=== PATIENT | female | born 1980 | race Two or more races ===

== ENCOUNTER 2024-06-25 19:26 | Emergency (ER) | payer MEDICAID, SELFPAY ==
[2024-06-25 19:28] VITALS: BMI 33.6
[2024-06-25 19:53] VITALS: BP 119/66; PULSE 81; RESP 18; TEMP 37.2; O2SAT 100
--- NOTE | 2024-06-25 20:01 | XR_ITS ---
Examination: Complete OB ultrasound, less than 14 weeks, transabdominal Date and time of exam: June 25, 2024 2043 hrs. Indications: Vaginal bleeding beginning one hour ago Technique: Obstetrical ultrasound images less than 14 weeks performed via transabdominal imaging Findings: Uterus 8.3 cm, intrauterine gestational sac 1.2 cm corresponds to 6 week 0 day gestational age No pole, no cardiac activity Right ovary obscured by bowel gas Left ovary 3.4 cm arterial flow Impression: Empty intrauterine gestational sac corresponding to 6 week 0 day gestational age No pole, no cardiac activity Recommend transvaginal pelvic sonography follow-up to confirm viability
--- NOTE | 2024-06-25 20:01 | EDNOTE_ITS ---
ED OB Contraction Preg RMI/HPI General Chief complaint: Vaginal Bleeding Stated complaint: VAGINAL BLEEDING, 8WKS Time Seen by Provider: 06/25/24 20:00 Arrival date/time: 06/25/24 19:26 44F at approximately 8 weeks and with no significant PMH presents to ED with 1 day of pelvic cramping and light vaginal bleeding/spotting. Limitations: no limitations Related Data Previous Rx's ?Medication ?Instructions ?Recorded amoxicillin 500 mg tablet 500 mg PO TID #21 tabs 07/31 [id number] 3.5 4 drp otic (ear) Q8H #10 mL 07/31/22 mg/mL-10,000 unit/mL-1 % ear solution ibuprofen 800 mg tablet 800 mg PO BID PRN pain #14 t abs 08/02/22 ofloxacin 0.3 % ear drops 10 drp otic (ear) BID 7 days #10 mL 08/02/22 Allergies Allergy/AdvReac Type Severity Reaction Status Date / Time No Known Allergies Allergy Verified 06/25/24 19:27 Review of Systems Review of Systems Systems Reviewed: All systems reviewed, normal except as documented Constitutional Constitutional: Reports system reviewed and no additional complaints, except as documented, Denies fever(s) and Denies headache(s) ENT Ears, Nose, Mouth, and Throat: Denies disequilibrium and Denies headache(s) Cardiovascular Cardiovascular: Reports system reviewed and no additional complaints, except as documented, Denies chest pain and Denies dyspnea Respiratory Respiratory: Reports system reviewed and no additional complaints, except as documented, Denies cough and Denies dyspnea Gastrointestinal Gastrointestinal: Reports system reviewed and no additional complaints, except as documented, Denies abdominal pain, Denies nausea and Denies vomiting Genitourinary Genitourinary: Reports as per HPI, Reports abnormal vaginal bleeding and Reports pelvic pain Neurologic Neurologic: Reports system reviewed and no additional complaints, except as documented, Denies confusion, Denies disequilibrium and Denies headache(s) Psychiatric Psychiatric: Denies confusion Past Medical History Past Medical History CARDIAC: Negative Congestive Heart Failure RESPIRATORY: Negative Chronic Obstructive Pulmonary Disease (COPD) GENITOURINARY: Negative Renal Disease ENDOCRINE: Negative Diabetes Mellitus Type 1 or Diabetes Mellitus Type 2 Social History SMOKING STATUS: Never smoker SUBSTANCE USE: does not use ED Exam General Limitations: Present no limitations General appearance: Present alert and in no apparent distress Head Head exam: Present atraumatic Eye Eye exam: Present normal appearance, PERRL and EOMI ENT ENT exam: Present normal exam, normal oropharynx and mucous membranes moist Neck Neck exam: Present normal inspection, full ROM and trachea midline Chest Chest inspection: Present normal inspection and symmetric chest wall rise Respiratory Respiratory exam: Present normal lung sounds bilaterally Cardiovascular Cardiovascular exam: Present regular rate, normal rhythm and normal heart sounds Abdominal Exam Abdominal exam: Present soft and normal bowel sounds Extremities Exam Extremities exam: Present normal inspection and full ROM Back Exam Back exam: Present normal inspection and full ROM Neurological Exam Neurological exam: Present alert, oriented X3 and CN II-XII intact Psychiatric Psychiatric exam: Present normal affect and normal mood Skin Skin exam: Present warm, dry, intact and normal color Course Quality Measures none Orders Category Date Time Status US OB <= 14 weeks fetus Stat Exams 06/25/24 20:01 Completed US OB transvaginal Stat Exams 06/25/24 21:53 Completed ABO/RH Type Stat Lab 06/25/24 20:13 Completed Beta HCG,Quantitative Stat Lab 06/25/24 20:13 Completed CBC Stat Lab 06/25/24 20:13 Completed CMP [Comprehensive Metabolic Panel] Stat Lab 06/25/24 20:13 Completed UA [Urinalysis] Stat Lab 06/25/24 20:06 Completed Urine Culture Stat Lab 06/25/24 20:06 Received Vital Signs Vital signs: Vital Signs Temperature 98.9 F 06/25/24 19:53 Pulse Rate 81 06/25/24 19:53 Respiratory Rate 18 06/25/24 19:53 Blood Pressure 119/66 06/25/24 19:53 Pulse Oximetry (%) 100 06/25/24 19:53 Oxygen Delivery Method Room Air 06/25/24 19:53 O2 at 100% on RA and WNLs Vaginal Bleeding MDM Narrative MDM Narrative: 44F at approximately 8 weeks and with no significant PMH presents to ED with 1 day of pelvic cramping and light vaginal bleeding/spotting. Physical exam reveals well-appearing female. Patient is afebrile, calm, and alert. US reveals IU gestation but no FHTs. Beta HCG around 7.5k and WNLs. No leukocytosis or anemia. UA just RBCs. CMP umremarkable. Blood type B+. Frame Stripper given. Patient data External records reviewed:: [facility] previous records Clinical information provided by:: patient Social determinants that could affect healthcare access:: none Patient has the following chronic illnesses:: none How is presenting disease/condition affected by chronic disease/condition?: no chronic disease Evaluation data The following diagnostics were reviewed and interpreted by me:: lab results and radiology exam(s) Lab and/or radiology exams considered but not ordered:: ordered Interpretation Summary: above Medications / Prescriptions Medications or Prescriptions considered but not ordered:: not ordered Medication administrations:: n/a Consultations Consultation(s) initiated? (list below): No Diagnosis Vaginal Bleeding Differential Diagnosis: missed , threatened , dysfunctional uterine bleeding, menometrorrhagia, incomplete , ectopic without intrauterine and vaginal bleeding Most likely diagnosis given after review of the tests above:: threatened miscarriage Admission Indicated Admission indicated?: not indicated Admission Request Was there a request for admission?: No Disposition Plan Disposition Plan: Discharge Discharge Attestation Discharge Attestation: The patient and all family members were given an opportunity to ask questions and understood the discharge instructions. Discharge instructions specifically effects, indications for sooner follow up or return to the emergency department, and the expected course of current diagnosis. Patient condition: Stable Discharge Plan Plan Patient Disposition: HOME (Self Care) Disposition Comment: Stable Prescriptions/Referrals Prescriptions/Med Rec: No Action [id number] 3.5-10,000-1 mg/mL-unit/mL-% solution 4 drp otic (ear) Q8H Qty: 10 0RF amoxicillin 500 mg tablet 500 mg PO TID Qty: 21 0RF ofloxacin 0.3 % drops 10 drp otic (ear) BID 7 Days Qty: 10 1RF ibuprofen 800 mg tablet 800 mg PO BID PRN (Reason: pain) Qty: 14 0RF Referrals: No Primary/Family,Physician [Primary Care Provider] - In 1 week Problem List Clinical Impression: Threatened miscarriage Patient/Caregiver Discharge Instructions Education Materials: ED Possible Miscarriage ... Additional Instructions: Please follow-up with PCP/OBGYN within 24-48 hours and return immediately if symptoms worsen. Repeat HCG +/- US in 48-72 hours. Print Language: Turkmen Stand Alone Forms: Patient Portal Info Letter PA/DESTINY Supervising Physician PA/DESTINY Supervising Physician: Dr. Marin
[2024-06-25 20:38] LABS: Basophils % (Auto) 0 % (0-2.5); Eosinophils # (Auto) 0.2 Thou/mm3 (0.0-0.5); Eosinophils % (Auto) 3 % (0-10); Hematocrit 37.1 % (36.0-46.0); Hemoglobin 12.8 g/dL (12.0-16.0); Immature Granulocytes % (Auto) 0 % (0-0); Immature Granulocytes Auto 0.02 Thou/mm3 (0.00-0.00); Lymphocytes # (Auto) 2.6 Thou/mm3 (1.0-4.8); Lymphocytes % (Auto) 30 % (10-50); Mean Corpuscular HGB Conc 34.5 g/dl (31.0-37.0); Mean Corpuscular Hemoglobin 32.5 pg (25.0-35.0); Mean Corpuscular Volume 94 fL (80-100); Monocytes # (Auto) 0.9 Thou/mm3 (0.0-0.8); Monocytes % (Auto) 10 % (0-12); Neutrophils % (Auto) 57 % (37-80); Nucleated Red Blood Cell % 0 /100 WBC (0); Platelet Count 301 Thou/mm3 (140-440); Red Blood Count 3.94 Miln/mm3 (4.00-5.20); White Blood Count 8.7 Thou/mm3 (3.6-11.0)
[2024-06-25 20:40] LABS: Collection Type, Urine Clean Catch
[2024-06-25 21:10] LABS: Bilirubin,Urine Negative (Negative); Blood,Urine 3+ (Negative); Clarity,Urine Clear (Clear/Hazy); Color,Urine Lt-Yellow (Lt Yel-Yel); Glucose, Urine Negative (Negative); Ketones,Urine Negative (Negative); Leukocyte Esterase,Urine Negative (Negative); Nitrite,Urine Negative (Negative); Protein,Urine Trace (Neg - Trace); RBC,Urine 48 /hpf (0-3); Specific Gravity,Urine 1.028 (1.001-1.035); Squamous Epithelial Cell,Urine 7 /hpf (0-5); Urobilinogen,Urine Negative mg/dL (0.0-1.0); WBC,Urine 4 /hpf (0-5)
[2024-06-25 21:10] LABS: Alanine Aminotransferase 11 U/L (10-49); Albumin, Serum 4.4 gm/dL (3.5-5.0); Albumin/Globulin Ratio 1.9 (1.2-2.2); Alkaline Phosphatase 91 U/L (46-116); Anion Gap 6 (7-16); Aspartate Amino Transferase 18 U/L (0-34); BUN/Creatinine Ratio 29 Ratio (12-20); Bilirubin,Total 0.2 mg/dL (0.3-1.2); Blood Urea Nitrogen 23 mg/dL (9-23); Calcium 8.9 mg/dL (8.3-10.6); Calcium (Corrected) 8.9 mg/dL (8.5-10.1); Carbon Dioxide 24.5 mMol/L (20.0-31.0); Chloride 104 mMol/L (98-107); Creatinine (Component) 0.8 mg/dL (0.6-1.3); Estimated Creatinine Clearance 69.9 mL/min (>60); Globulin 2.3 gm/dL (2.3-3.5); Glucose 102 mg/dL (74-106); Osmolality,Calculated 271 (275-295); Potassium 4.4 mMol/L (3.4-5.1); Sodium 134 mMol/L (136-145); Total Protein 6.7 gm/dL (5.7-8.2); eGFR > 60 See Note
[2024-06-25 21:33] LABS: Beta HCG,Quantitative 7555 mIU/mL (<5.0)
--- NOTE | 2024-06-25 21:53 | XR_ITS ---
Examination: OB Transvaginal ultrasound of the pelvis, complete Technique: Transvaginal sonographic images pelvis performed using urrutia scale imaging Exam date and time: June 25, 2024 1002 p.M. Indications: Vaginal bleeding beginning 3 hours ago. Findings: Uterus 10.1 cm pole 2.3 cm corresponds to 5 weeks 6 days gestational age Cardiac motion not detected Ovaries obscured by bowel gas Impression: Intrauterine gestation corresponding to 5 week 6 day gestational age No cardiac activity Recommend continued short-term follow-up transvaginal pelvic sonography to exclude demise
== END 2024-06-26 00:58 | disposition home or self-care (01) ==
PROVIDERS: Physician Assistant; Emergency Provider Emergency Medicine
DX: O20.0 Threatened abortion (principal); Z3A.01 Less than 8 weeks gestation of pregnancy
CPT/HCPCS: 36415; 76801; 76817; 80053; 81001; 84702; 85025; 86900; 86901; 87086; 87186; 99284